=== PATIENT | male | born 1965 ===

== ENCOUNTER 2022-05-21 09:09 | Outpatient (CLI) | payer BC ==
[2022-05-21] MEDS ORDERED: Iopamidol 370 76% 100 ML VIAL ONE (14:04)
== END 2022-05-21 09:10 | disposition home or self-care (01) ==
LOC: CT 09:09
PROVIDERS: ATTEND Family Medicine
DX: R51.9 Headache, unspecified (principal); Z82.49 Family history of ischemic heart disease and other diseases of the circulatory system
CPT/HCPCS: 70496; Q9967